=== PATIENT | female | born 1950 | race Two or more races ===

== ENCOUNTER 2025-02-17 18:29 | Emergency (ER) | payer OTHER, MEDICAID ==
[~2025-02-17] VITALS: Ht 160 cm; Wt 68.3 kg
--- NOTE | 2025-02-17 19:46 | ED.PDOC ---
Ike. trauma (HPI) HPI Comments PT HAS C/O LEFT WRIST AND MID BACK PAIN X TODAY S/P TRIP AND FALL -LOC Chief Complaint: Fall Injury Time Seen by MD: 18:32 Reviewed notes: Nurses Notes, Medications, Allergies Allergies: Coded Allergies: NO KNOWN ALLERGIES (Unverified , 02/17/25) Home Meds Active Scripts Hydrocodone-Acetaminophen (Hydrocodone Bitartrate/AC 5-325 mg) 1 Tab Tab, 1 TAB PO Q6HP PRN, #30 TAB Prov:TRAVIS DAVID MD 02/17/25 Information Source: Patient Mode of Arrival: Ambulatory Past Medical History PAST MEDICAL HISTORY: Denies Surgical History: Denies all surgeries NAIL MAKER History: No Pertinent NAIL MAKER History Family History Family History: Reviewed,noncontributory to illness Social History Smoker: Non-Smoker Alcohol: Denies ETOH Use Drugs: Denies Drug Use Constitutional: denies: chills, diaphoresis, fatigue, fever, malaise, sweats, weakness, others EENTM: denies: blurred vision, double vision, ear bleeding, ear discharge, ear drainage, ear pain, ear ringing, eye pain, eye redness, hearing loss, mouth pain, mouth swelling, nasal discharge, nose bleeding, nose congestion, nose pain, photophobia, tearing, throat pain, throat swelling, voice changes, others Respiratory: denies: cough, hemoptysis, orthopnea, SOB at rest, shortness of breath, SOB with excertion, stridor, wheezing, others Cardiovascular: denies: chest pain, dizzy spells, diaphoresis, Dyspnea on exertion, edema, irregular heart beat, left arm pain, lightheadedness, palpitations, PND, syncope, others Gastrointestinal: denies: abdomen distended, abdominal pain, blood streaked bowels, constipated, diarrhea, dysphagia, difficulty swallowing, hematemesis, melena, nausea, poor appetite, poor fluid intake, rectal bleeding, rectal pain, vomiting, others Genitourinary: denies: abnormal vagina bleeding, burning, dyspareunia, dysuria, flank pain, frequency, hematuria, incontinence, pain, , vagina discharge, urgency, others Musculoskeletal: reports: back pain, joint pain, joint swelling; denies: gout, muscle pain, muscle stiffness, neck pain, others Integumetry: denies: bruises, change in color, change in hair/nails, dryness, laceration, lesions, lumps, rash, wounds, others Allergic/Immunocompromised: denies: Difficulty Healing, Frequent Infections, Hives, Itching, others Endocrine: denies: excessive hunger, excessive sweating, excessive thirst, excessive urination, flushing, intolerance to cold, intolerance to heat, unexplained weight gain, unexplained weight loss, others Psychiatric: denies: anxiety, bipolar disorder, depression, hopeless, panic disorder, schizophrenia, sleepless, suicidal, others Physical Exam General Appearance: No Apparent Distress, Normal HEENT: Normal ENT Inspection, Pharynx Normal, TMs Normal Neck: Full Range of Motion, Non-Tender, Normal, Normal Inspection Respiratory: Chest Non-Tender, Lungs Clear, No Accessory Muscle Use, No Respiratory Distress, Normal Breath Sounds Cardiovascular: No Edema, No JVD, No Murmur, No Gallop, Normal Peripheral Pulses, Regular Rate/Rhythm Breast Exam: Deferred Gastrointestinal: No Organomegaly, Non Tender, No Pulsatile Mass, Normal Bowel Sounds, Soft Genitalia: Deferred Pelvic: Deferred Rectal: Deferred Extremities: No calf tenderness, Normal capillary refill, Normal inspection, Normal range of motion, Non-tender, No pedal edema Musculoskeletal : Apperance: Normal Neurologic: Alert, security patrol driver II-XII nml as Tested, No Motor Deficits, Normal Affect, Normal Mood, No Sensory Deficits Cerebellar Function: Normal Reflexes: Normal Skin: Dry, Normal Color, Warm Lymphatic: No Adenopathy Was a procedure done? Was a procedure done?: No Differential Diagnosis Multiple Trauma: Fractures, Pneumothorax, Spine Injury, Contusion X-Ray, Labs, Meds, VS Vital Signs Date Time Temp Pulse Resp B/P (MAP) Pulse Ox O2 Delivery O2 Flow Rate FiO2 02/17/25 23:20 98.6 59 18 148/65 (92) 99 98.6 02/17/25 22:03 74 20 98 Room Air* 0 21 02/17/25 19:03 98.2 61 20 167/63 (97) 99 98.2 Current Medications Medications (Trade) Dose Ordered Sig/Tab Route Start Time Stop Time Status Last Admin Acetaminophen/ Hydrocodone Bitart ([place] 5/325MG Tab) 1 tab ONCE ONCE PO 02/17/25 21:45 02/17/25 21:46 DC 02/17/25 21:51 X-Ray, Labs, Meds, VS Comment CT thoracic spine IMPRESSION: Moderate compression deformity at the superior endplate of T12 that is likely acute. There is 3 mm bony retropulsion without significant spinal canal narrowing. Severe degenerative disc disease T7-T12. There is a 9 mm pulmonary nodule in the partially visualized left upper lobe. PLAN: Noted moderate compression of T12 with retropulsion without spinal canal narrowing. Patient placed in back brace, given [place] 5 mg p.o.. Patient able to get up ambulate without difficulty. Patient requesting discharge. Patient lives with a daughter daughter at bedside agrees with discharge plan. Script trial of [place] advised to take medication as prescribed side effects discussed advised no alcohol or driving while on medication. Advised to call PCP in the morning schedule a follow up consider referral to pain management consider possible kyphoplasty. ER precautions, increasing pain, numbness, weakness, or any concerning symptoms return to the ER immediately. Advised on ice. Furthermore, discussed incidental finding of a 9 mm pulmonary nodule patient and daughter state she had no history or was aware of the findings. Advised to follow up with PCP referral to pulmonology for continued management as recommended repeat CT scan in three months. Patient and daughter Indicated understanding. X-ray left wrist FINDINGS/IMPRESSION: There is subtle lucency over the distal radius metaphysis without cortical breakthrough. Recommend correlation with point tenderness to exclude a possible nondisplaced fracture. Otherwise, no evidence of acute fracture or dislocation. The visualized joint space is well maintained. The alignment is anatomical. There is no radiopaque foreign body PLAN: Patient with point tenderness to distal radius. Patient placed in splint and arm sling. As noted above advised to follow up continue with Inez self for the pain as needed. Time of 1ST Reevaluation: 19:45 Reevaluation 1ST: Unchanged Time of 2ND Reevaluation: 23:10 Reevaluation 2ND: Improved Patient Education/Counseling: Diagnosis, Treatment, Prognosis, Need For Follow Up Family Education/Counseling: No Family Present Departure 1 Departure Time of Disposition: 23:16 Impression: Primary Impression: Fracture of T12 vertebra Qualified Codes: S22.080A - Wedge compression fracture of T11-T12 vertebra, initial encounter for closed fracture Additional Impressions: Distal radius fracture, left Qualified Codes: S52.502A - Unspecified fracture of the lower end of left radius, initial encounter for closed fracture Incidental pulmonary nodule, greater than or equal to 8mm Disposition: 01 HOME / SELF CARE / HOMELESS Condition: Stable Additional Instructions: ADVISED NO BENDING OR FLEXION USE BACK BRACE WHEN UP AND AMBULATING. FOLLOW UP WITH YOUR PCP IN TWO DAYS FOR INCIDENTAL PULMONARY NODULE FINDING AND FOLLOW UP ON THE COMPRESSION FRACTURE AND WRIST FRACTURE TO THE ER FOR INCREASING PAIN NUMBNESS WEAKNESS LOSS OF BOWEL BLADDER CONTROL SADDLE ANESTHESIA OR ANY CONCERNING SYMPTOMS. e-Prescriptions Hydrocodone-Acetaminophen (Hydrocodone Bitartrate/AC 5-325 mg) 1 Tab Tab 1 TAB PO Q6HP PRN, #30 TAB Prov: TRAVIS DAVID MD 02/17/25 Discharged With: Self Critical Care Note Critical Care Time?: No Stability Stability form required: CHERRY Yanez Feb 17, 2025 19:46
--- NOTE | 2025-02-17 20:52 | DVH ---
CLINICAL INDICATION: S/P PAIN/INJURY TECHNIQUE: 3 radiographic views of the left wrist were obtained. Comparison: None FINDINGS/IMPRESSION: There is subtle lucency over the distal radius metaphysis without cortical breakthrough. Recommend c orrelation with point tenderness to exclude a possible nondisplaced fracture. Otherwise, no evidence of acute fracture or dislocation. The visualized joint space is well maintained. The alignment is anatomical. There is no radiopaque foreign body.
--- NOTE | 2025-02-17 20:55 | DVH ---
COMPUTERIZED TOMOGRAPHY OF THE THORACIC SPINE, NONCONTRAST REASON FOR EXAM: S/P FALL SEVERE PAIN COMPARISON: None TECHNIQUE: CT of the thoracic spine was performed in routine fashion with sagittal and coronal recon structions. Soft tissues and bone windows were filmed. Radiation optimization: All CT scans at this facility use at least one of these dose optimization dennis hniques: Automated exposure control mA and/or kV adjustment per patient size (includes targeted exams where dose is matched to clinical indication) or iterative reconstruction. RADIATION DOSE: CTDI: 24 mGy DLP: 835 mGy-cm FINDINGS: There is moderate compression deformity of the superior endplate of T12 that is likely acu te. There is 3 mm retropulsion of bone. There is no significant spinal canal narrowing. No other thor acic spine fracture is identified. There is severe disc height loss with endplate hypertrophy T7 to T 12. There is a sclerotic focus within T7 vertebral body, likely a bone island. There is at least mild neural foraminal narrowing on the right T8-T11. There is a 9 mm nodule in the partially visualized l eft upper lobe. IMPRESSION: Moderate compression deformity at the superior endplate of T12 that is likely acute. There is 3 mm binh ny retropulsion without significant spinal canal narrowing. Severe degenerative disc disease T7-T12. There is a 9 mm pulmonary nodule in the partially visualized left upper lobe. Fleischner Society Guidelines for Incidental Pulmonary Nodules: SOLID NODULES Single low-risk: < 6 mm No follow up. 6-[address] at 6-12 months, then consider CT at 18-24 months. > [address] at 3 months, PET/CT or bx. Single high risk: < [address] at 12 months. 6-[address] at 6-12 months, then consider CT at 18-24 months. > [address] at 3 months, PET/CT or bx. Multiple low risk: < 6 mm No follow up. 6-[address] at 3-6 months, then consider CT at 18-24 months. > [address] at 3-6 months, then consider CT at 18-24 months. Multiple high risk: < [address] at 12 months. 6-[address] at 3-6 months, then CT at 18-24 months. > [address] at 3-6 months, then CT at 18-24 months. SUBSOLID NODULES Ground glass: < 6 mm No follow up. > [address] at 6-12 months, then CT every 2 years for 5 years. Part solid: < 6 mm No follow up. > [address] at 3-6 months. If stable with solid component <6mm, annual CT for 5 years. Multiple: < [address] at 3-6 months. If stable, consider CT at 2 and 4 years. > [address] at 3-6 months. Subsequent based on most suspicious nodule. Notes: Recommendations do not apply to cancer screening, patient with immunosuppression or known primary can cer. Reference: Radiology 2017; Allanhoklarissa et al; [id number]
[2025-02-17] MEDS: HYDROcodone-ACET 5/325MG TAB PO ONE (21:51)
[2025-02-17 22:03] VITALS: PULSE 74; RESP 20; O2SAT 98
[2025-02-17] MEDS ORDERED: HYDR-4902 PO (23:14)
[2025-02-17 23:20] VITALS: BP 148/65; PULSE 59; RESP 18; TEMP 98.6; O2SAT 99
== END 2025-02-17 23:29 | disposition home or self-care (01) ==
LOC: ER 18:29
DX: S52.592A Other fractures of lower end of left radius, initial encounter for closed fracture (principal); S22.080A Wedge compression fracture of T11-T12 vertebra, initial encounter for closed fracture; W01.0XXA Fall on same level from slipping, tripping and stumbling without subsequent striking against object, initial encounter; Y93.89 Activity, other specified; Y92.89 Other specified places as the place of occurrence of the external cause; Y99.8 Other external cause status
CPT/HCPCS: 29125; 72128; 73110